=== PATIENT | female | born 1990 | race African-American/Black ===

== ENCOUNTER → 2020-05-23 00:58 | Outpatient (CLI) | payer BC, SELFPAY ==
[2020-05-24 00:21] LABS: SARS-CoV-2 RNA PCR Negative
== END ==
PROVIDERS: PCP Internal Medicine; Visit Provider Obstetrics & Gynecology
DX: Z01.812 Encounter for preprocedural laboratory examination (principal); Z20.822 Contact with and (suspected) exposure to COVID-19
CPT/HCPCS: C9803; U0003; U0005

== ENCOUNTER 2020-05-26 00:56 | Day surgery (SDC) | payer BC, SELFPAY ==
[2020-05-19 15:23] VITALS: BMI 24.4
[2020-05-26] VITALS (9 sets, daily range): BP systolic 104–127; BP diastolic 72–91; PULSE 89–108; RESP 14–16; TEMP 36.2–36.3; O2SAT 100
--- NOTE | 2020-05-26 07:19 | WPDHPUPDATE1 ---
History and Physical Update Update Date/Time: 05/26/20 07:19 History and Physical has been reviewed, including an updated exam of the patient. There are NO changes in the patient's condition. Risks, benefits, and alternatives have been discussed and questions answered. Patient agrees to proceed with procedure.
[2020-05-26] MEDS: ACETAMINOPHEN 500 MG TABLET 1000 MG PO (07:45)
[2020-05-26] MEDS: KETOROLAC 15 MG/ML VIAL (*BKC) IV PUSH (08:05)
[2020-05-26] MEDS: LACTATED RINGERS 1,000 ML 30 ML IV CONT ×2 (08:08→10:11)
--- NOTE | 2020-05-26 09:04 | P.PNAN_ITS ---
Anes - Initial Pre Proc Eval Procedure: Operation Date: 05/26/20 08:30 Proposed Procedures p Hysteroscopy With Thelma Endometrial Ablation, Laparoscopic Bilateral Salpingectomy - Marisol Luo MD Date/Time: 05/26/20 09:04 Surgeon: Marisol Luo MD Pre Op Diagnosis: Pelvic Pain, Menorrhagia Patient Data Age: 30 Gender: F Height: 5 ft 3 in Weight: 59 kg Last Vital Signs Temp 36.2 C L 05/26/20 06:52 Pulse 90 05/26/20 06:52 Resp 14 05/26/20 06:52 BP 117/79 05/26/20 06:52 Pulse Ox 100 05/26/20 06:52 Allergies Allergy/AdvReac Type Severity Reaction Status Date / Time No Known Allergies Allergy Verified 05/26/20 07:42 Home Medications Medication Instructions Recorded Confirmed Type No Home Medications 05/19/20 05/26/20 History Patient hx anesthesia problems: none Family hx anesthesia problems: none [facility] Social History Social History Smoking status: Never smoker Second hand tobacco smoke exposure: No Alcohol intake: current Drinks per week: 2 Substance use: never Living arrangements: with family Spiritual care concerns: No Anes - Eval Final PreProcedure Day of Procedure 05/26/20 09:04 Patient weight: normal Heart: regular rate and rhythm Lungs: clear to auscultation Airway: Mallampati scale class 1 Neurological: alert and oriented Last oral intake: >/= 8 hours ASA classification: I Emergent: no Anesthetic plan: proceed Anesthesia type and monitoring: general ETT and standard monitoring Informed Consent: The patient's anesthetic plan and its attendant risks and benefits were discussed with the patient/family/POA. Questions were solicited and answers provided to the satisfaction of the patient/family/POA.
--- NOTE | 2020-05-26 10:05 | SUR.OPER ---
Ebl=50ml
--- NOTE | 2020-05-26 10:17 | P.OP_ITS ---
Procedure Note - Detailed Date of procedure: 05/26/20 Pre-op diagnosis: Pelvic Pain, Menorrhagia Post-op diagnosis: same (Endometriosis, pelvic adhesions, left ovarian cyst,) Procedure performed: Laparoscopic bilateral salpingectomy, Endometrial Ablation, adhesiolysis, ovarian cystectomy, resection of endometriosis, endocervical polyps. Description of procedure: Patient was taken the operating room. She has prepped draped in the dorsal lithotomy position after induction of general anesthesia. A 5 mm abdominal incision was made in left upper quadrant of the abdomen with scalpel. A 5 mm trocars inserted the intra-abdominal cavity under direct visualization of the scope. Pneumoperitoneum was achieved. A 5 mm periumbilical incision was made using a scalpel on the abdominal scan. A 5 mm trocar was inserted the intra-abdominal cavity under visualization of the scope. A left lower quadrant 5 mm trocars inserted into the intra-abdominal cavity direct visits scope through a 5 mm incision in the left lower quadrant made with a scalpel. Laparoscopic bilateral fallopian tubes were removed by cauterizing the paratubal tissue from the ovary to the cornual region of the uterus using a LigaSure. The tube was transected at the cornual insertion of the tube. The coils were exposed and grasped and removed and taken out the left lower quadrant trocar site along with the tubes. Ovarian was cystectomies performed on left side using the LigaSure cautery. The cut surface was cauterized with unipolar cautery. Two endometrial implants removed from the right side of the pelvis, 1 in the posterior cul-de-sac and the other in the adnexa. This was perform with sharp and blunt dissection using cautery. Adhesiolysis was performed in the posterior cul-de-sac. The instruments were withdrawn. The pneumoperitoneum was reduced. The trocars were removed. The skin was closed with subcuticular 4 Monocryl. This incisions were covered with Dermabond. Our attention was then turned to the endometrial ablation portion of the proc edure. A speculum was placed in the vagina. The cervix was grasped with a tenaculum. The cervix was dilated to approximately 8 mm with Murray dilators. The hysteroscope was inserted. And the below findings were noted. Curettage was performed in the uterus and endocervix. Tissue was retrieved and sent to pathology. Measurements of the cervix were taken using the uterine sound and the hysteroscope. The intrauterine cavity measurements were entered into the hand piece of the device. The device was inserted the intrauterine cavity. The array was expanded. The balloon cuff was inflated. The uterus was airtight. The energy and safety cycles within initiated. They were completed under 3 minutes. The balloon cuff was collapsed, the array was collapsed, and the device was removed the uterine cavity. the hysteroscope was reinserted and the cavity was well desiccated, it was clearly observed. Hysteroscope was withdrawn. The tenaculum was removed. The speculum was removed. The patient tolerated the procedure well. She was taken to recover room in stable condition. Anesthesia: GETA Surgeon: Marisol Luo MD Estimated blood loss (mL): 50 Drains: No Packing: No Pathology: none sent Complications: No immediate complications Condition: stable Disposition: PACU Findings: Posterior cul-de-sac adhesions, left ovarian cyst, endometrial implants: posterior cul-de-sac, right adnexa, bilateral Essure implants, normal endometrial cavity with some small possible polyps.
[2020-05-26] MEDS: oxyCODONE HCL (*CRX) 5 MG TAB IR PO (11:26)
== END 2020-05-26 12:15 | disposition home or self-care (01) ==
PROVIDERS: PCP Internal Medicine; Visit Provider Obstetrics & Gynecology
PROC: 0UDB8ZZ Extraction of Endometrium, Via Natural or Artificial Opening Endoscopic (ICD-10-PCS; CPT 58558; principal; 2020-05-26 08:30)
DX: R10.2 Pelvic and perineal pain (principal); N92.0 Excessive and frequent menstruation with regular cycle; N83.02 Follicular cyst of left ovary; N84.1 Polyp of cervix uteri; N73.6 Female pelvic peritoneal adhesions (postinfective); N80.3 Endometriosis of pelvic peritoneum; N84.0 Polyp of corpus uteri
CPT/HCPCS: 58563; 58661; 58662; 88302; 88305; A9270; J0330; J1100; J1885; J2250; J2405; J2704; J3010; J7030; J7120

== ENCOUNTER 2020-10-15 15:08 | Outpatient (CLI) | payer BC, SELFPAY ==
--- NOTE | ~2020-10-15 | US_ITS ---
EXAMINATION: US pelvic complete w TV DATE: 10/15/2020 15:59 INDICATION: Pelvic pain TECHNIQUE: Multiple transabdominal and endovaginal sonographic images of the pelvis were obtained. COMPARISON: None. FINDINGS: The uterus measures 8.7 x 6.6 x 4.6 cm. Nabothian cysts are noted in the cervix. The endome trial complex measures 6 mm. The right ovary measures 3.3 x 3.1 x 2.5 cm. The left ovary measures 3.2 x 2.4 x 2.0 cm. There is normal vascular flow in the ovaries. There is no free fluid in the pelvis. IMPRESSION: 1. No sonographic correlate for the patient's symptoms. Reviewed, dictated and finalized at location B.
== END 2020-10-15 15:09 | disposition home or self-care (01) ==
PROVIDERS: PCP Internal Medicine; Visit Provider Nurse Practitioner Obstetrics & Gynecology
DX: R10.2 Pelvic and perineal pain (principal)
CPT/HCPCS: 76830; 76856

== ENCOUNTER → 2021-08-20 08:40 | Outpatient (CLI) | payer OTHER, SELFPAY ==
--- NOTE | ~2021-08-20 | MMUS_ITS ---
EXAMINATION: MM diagnostic eve BI w kelly, US breast BI complete HISTORY: Patient reports a lump in the right breast at 3:00. Patient physician reportedly feels a lum p in the lateral left breast. TECHNIQUE: ML, MLO and craniocaudal 3-D tomosynthesis images of both breasts were performed and synth etic 2-D images were generated. CAD analysis was submitted and interpreted. High resolution bilateral complete breast ultrasound including all 4 quadrants and subareolar areas was performed. COMPARISON: None BREAST PARENCHYMAL COMPOSITION: The breasts are extremely dense, which lowers the sensitivity of mamm ography. FINDINGS: MAMMOGRAPHIC FINDINGS: No suspicious mass or architectural distortion, malignant calcification, skin thickening or retractio n of either breast is evident. ULTRASOUND: No suspicious mass or shadowing of either breast is evident. Probable cyst on each side: Right breast: 10:00 6 cm from nipple: 1.9 x 3.3 mm septated cyst Left breast: 3.9 x 5.4 x 7.5 mm mildly septated cyst. IMPRESSION: 1. No mammographic evidence of malignancy 2. Routine mammographic screening is recommended BI-RADS Category 2: Benign finding(s). Reviewed, dictated and finalized at location A. IMPRESSION: 1. No mammographic evidence of malignancy 2. Routine mammographic screening is recommended BI-RADS Category 2: Benign finding(s).
== END ==
PROVIDERS: PCP Family Medicine
DX: N63.15 Unspecified lump in the right breast, overlapping quadrants (principal)
CPT/HCPCS: 76641; 77062; 77066; G0279